=== PATIENT | female | born 1945 | race Caucasian/White ===

== ENCOUNTER 2022-09-27 23:36 | Emergency (ER) | payer OTHER, MEDICARE, SELFPAY ==
--- NOTE | ~2022-09-27 | XR_ITS ---
EXAMINATION: XR chest 2V 09/28/2022 00:21 INDICATION: Chest pain PROCEDURE: 2 view chest COMPARISON: 05/13/2017 FINDINGS: The lungs are clear. The cardiomediastinal silhouette is within normal limits. There are no pleural effusions. There is no pneumothorax suspected. IMPRESSION: 1: NO ACUTE CARDIOPULMONARY DISEASE. Reviewed, dictated and finalized at location A. [facility]
--- NOTE | 2022-09-27 23:39 | ECG_ITS ---
Measurements Intervals [place] Rate: 71 P: 26 ID: [id number] QRS: -1 QRSD: 132 T: -3 QT: 363 QTc: 397 Interpretive Statements SINUS RHYTHM RIGHT BUNDLE BRANCH BLOCK [120+ ms QRS DURATION, UPRIGHT V1, 40+ ms S IN I/aVL/V4/V5/V6] ABNORMAL ECG NO PREVIOUS ECG AVAILABLE FOR COMPARISON Electronically Signed On 09-28-2022 15:19:49 [employer] by Roosevelt White M.D.
[2022-09-27 23:45] VITALS: BP 156/92; PULSE 76; RESP 16; TEMP 36.4; O2SAT 100
[2022-09-28] VITALS (8 sets, daily range): BP systolic 120–149; BP diastolic 58–81; PULSE 61–83; RESP 11–19; O2SAT 93–97
[2022-09-28 04:11] LABS: Basophils Percent Auto 0.2 % (0.2-1.2); Eosinophils Absolute Auto 0.5 K/mm3 (0-0.3); Eosinophils Percent Auto 3.8 % (0-4.4); Hematocrit 39.1 % (37.0-47.0); Hemoglobin 12.9 g/dL (12.0-15.0); Immature Granulocyte Absolute 0.06 K/mm3 (0.00-0.031); Immature Granulocyte Percent A 0.5 % (0-0.5); Lymphocytes Absolute Auto 1.18 K/mm3 (0.9-3.2); Lymphocytes Percent Auto 9.7 % (18.3-44.2); Mean Corpuscular Hemoglobin 30.6 pg (26-34); Mean Corpuscular Volume 92.7 fl (80-100); Mean Platelet Volume 9.8 fl (7.4-10.4); Monocytes Absolute Auto 0.4 K/mm3 (0.1-0.6); Monocytes Percent Auto 3.4 % (2.6-8.5); Neutrophils Percent Auto 82.4 % (45.5-73.1); Platelet Count Result 268 k/mm3 (150-375); Red Blood Count 4.22 M/mm3 (4.2-5.4); Red Cell Distribution Width 13.1 % (11.5-14.5); White Blood Count 12.1 K/mm3 (4.5-10.0)
[2022-09-28 04:23] LABS: Alanine Aminotransferase 96 U/L (6-35); Albumin Level 4.4 g/dL (3.5-5.1); Alkaline Phosphatase 104 U/L (38-126); Anion Gap 5 mmol/L (8-16); Aspartate Amino Transferase 161 U/L (14-36); Bilirubin,Total 0.5 mg/dL (0.2-1.3); Blood Urea Nitrogen 24 mg/dL (7-17); Calcium 11.1 mg/dL (8.4-10.2); Carbon Dioxide 26 mmol/L (22-30); Chloride 104 mmol/L (98-107); Estimated CRCL calculation 56 ml/min; Estimated Glomerular Filt Rate > 60; Glucose 113 mg/dL (65-110); Lipase 104 U/L (23-300); Potassium 4.4 mmol/L (3.4-5.0); Sodium 135 mmol/L (137-145)
[2022-09-28 04:33] LABS: Troponin I < 0.012 ng/mL (0.000-0.034)
[2022-09-28 05:16] LABS: Prothrombin Time 12.6 Seconds (11.1-14.7)
[2022-09-28 05:17] LABS: Partial Thromboplastin Time 30.9 SECONDS (22.3-36.8)
--- NOTE | 2022-09-28 05:50 | ED.GENADULT ---
HPI - General Adult General Chief complaint: Chest Pain Stated complaint: diarrhea x 1 week, abd pain Time Seen by Provider: 09/28/22 05:29 History of Present Illness HPI narrative: This is a 77-year-old female presenting ED with a chief complaint of diarrhea x1 week. Patient has been having 3-4 episodes of watery, nonbloody diarrhea per day. She denies fever, chills, nausea, vomiting, abdominal pain or urinary symptoms. She has been making sure to drink plenty of fluid every day and does not have any symptoms of dehydration or orthostatic hypotension. Earlier today she took some Imodium. Afterwards she developed a pain that felt like indigestion in the epigastric area. The pain started at 8:00 a.m. and resolved after 2-3 hours without intervention. She has never experienced pain like that before there are no exacerbating or alleviating factors. It was not associated with nausea, vomiting, diaphoresis, shortness of breath or exertion. The goal of today's visit is help with her diarrhea. Related Data Allergies Allergy/AdvReac Type Severity Reaction Status Date / Time No Known Allergies Allergy Unverified 05/12/17 23:43 [facility] Past Medical History Medical History Chronic arthritis Social History Social History (Updated 09/28/22 @ 05:52 by Eduardo Gaffney MD) Social History: Patient drinks alcohol on Fridays with her girlfriends. Denies use drugs or tobacco. Exam Narrative: APPEARANCE: No apparent distress. Patient is friendly and polite during the interview. She is well appearing Head: atraumatic. moist mucous membranes EYES: EOMI, NOSE: Atraumatic NECK: Trachea midline RESPIRATORY: No increased rate of breathing, clear to auscultation bilaterally CARDIOVASCULAR: RRR, not tachycardic ABDOMINAL: Non-distended, soft nontender no guarding or rebound MUSCULOSKELETAl: No obvious deformities NEURO: Alert. Moving 4/4 extremities SKIN:: Warm, dry. Normal color PSYCHIATRIC: Normal affect Course Vital Signs Vital signs: Vital Signs Temperature 97.6 F 09/27/22 23:45 Pulse Rate 76 09/27/22 23:45 Respiratory Rate 16 09/27/22 23:45 Blood Pressure 156/92 H 09/27/22 23:45 Pulse Oximetry 100 09/27/22 23:45 Temperature 97.6 F 09/27/22 23:45 Pulse Rate 74 09/28/22 03:57 Respiratory Rate 18 09/28/22 03:57 Blood Pressure 149/81 H 09/28/22 03:57 Pulse Oximetry 96 09/28/22 03:57 Medical Decision Making MDM Narrative Medical decision making narrative: -Presentation: 77-year-old female presenting with 1 week of nonbloody diarrhea. Afebrile, No current abdominal pain. Patient had episode of epigastric discomfort that she released indigestion that resolved on its own without intervention. -DDX includes but is not limited to: Gastroenteritis, viral diarrhea, food poisoning -Co-morbidities complicating care: arthritis -Social determinants of health: patient is employed at a [employer]. -External Chart Review: None -Hx from independent Sources: none -Discussion of Management/Consultants: none -Independent interpretation of studies: lab work was ordered per nursing protocol for chest pain. White blood cell count was 12.1. Patient is afebrile with no other source of infection. metabolic panel was within acceptable limits. Patient has 2- troponins. Independent EKG interpretation: Rhythm [sinus], Rate [71], [place] -[normal], VT -[normal], QRS [rbbb], QTC [normal], T waves -[negative for concerning inversions], ST Segments - [Negative for concerning elevations] Final interpretations: [ normal sinus rhythm with right bundle-branch block Chest x-ray showed no acute cardiopulmonary disease. Dx tests considered but not ordered: CT abdomen pelvis- no indication and well-appearing patient with no abdominal tenderness. Patient develops bloody diarrhea fevers and may be indicated In the future
[2022-09-28] MEDS: BISMUTH SUBSALICYLATE 262 MG CHEWABLE TABLET 524 MG PO (06:39)
== END 2022-09-28 06:46 | disposition home or self-care (01) ==
PROVIDERS: Emergency Provider Emergency Medicine; PCP Family Medicine
DX: R19.7 Diarrhea, unspecified (principal); M19.90 Unspecified osteoarthritis, unspecified site; R10.13 Epigastric pain; I45.10 Unspecified right bundle-branch block
CPT/HCPCS: 36415; 71046; 80053; 83690; 84484; 85025; 85610; 85730; 93005; 99284; A9270